=== PATIENT | male | born 1950 | race Two or more races ===

== ENCOUNTER 2018-10-24 16:33 | Emergency (ER) | payer MEDICARE ==
[~2018-10-24] VITALS: Ht 165.1 cm; Wt 75.3 kg
--- NOTE | 2018-10-24 16:45 | NUR ---
PATIENT CAME TO ER AMBULATORY. NO ACUTE DISTRESS. REPORTING THAT HI GT WAS PLACED AND IS ASKING IF WE CAN VERIFY PLACEMENT
--- NOTE | 2018-10-24 16:56 | NUR ---
DR KWONG AT BEDSIDE FOR GT REPLACEMENT
--- NOTE | 2018-10-24 17:00 | NUR ---
GT NOT REPLACED AT THIS TIME. DR KWONG WANTS TO VERIFY PLACEMENT OF CURRENT GT AT THIS TIME
[2018-10-24] MEDS ORDERED: DIATR MEGLU/DIATRIZOATE SODIUM 30 ML BOTTLE (GASTROGRAPHIN) ONE (17:10)
--- NOTE | 2018-10-24 17:18 | NUR ---
XRAY AT THE BEDSIDE. GT IS PATENT AND WAS FLUSHED WITH 30 ML WATER. GASTROGRAFIN GIVEN VIA GT. GT FLUSHED WITH 30 ML WATER AFTER GASTROGRAFIN.
--- NOTE | 2018-10-24 17:19 | NUR ---
XRAY IN PROGRESS
[2018-10-24 17:24] VITALS: BP 120/71
[2018-10-24] MEDS ORDERED: DIATR MEGLU/DIATRIZOATE SODIUM 30 ML BOTTLE (GASTROGRAPHIN) PO ONE (17:30)
[2018-10-24] MEDS ORDERED: DEXTROSE 50%-WATER 50 ML DISP.SYRIN ONE (19:29)
--- NOTE | 2018-10-24 19:40 | NUR ---
PATIENT NOTED TO BE ALTERED. NOT AWARE OF CURRENT LOCATION. FSBS TAKEN WITH RESULT OF 17. DR. KWONG MADE AWARE. PROTOCOL INITIATED. D50 IVP GIVEN. PATIENT TOLERATED WELL. RECHECKED BLOOD SUGAR AFTER ADMINISTRATION WITH RESULT OF 204. WILL RECHECK AFTER 1 HOUR
--- NOTE | 2018-10-24 20:49 | NUR ---
BG 88. MD AWARE. PT WANTS TO LEAVE AMA.
--- NOTE | 2018-10-24 20:52 | NUR ---
PT ASKED FOR BOTTLE OF GLUCERNA. 1 BOTTLE OF GLUCERNA GIVEN TO PT PRIOR TO LEAVING VIA [employer] and [employer].
--- NOTE | 2018-10-24 20:54 | NUR ---
Patient does not wish to proceed with medical care recommended by Dr. KWONG. Patient given information related to possible complications, up to and including , which could occur as a result of leaving the hospital at this time. Patient verbalizes understanding of risks involved due to leaving against medical advice. Patient has signed AMA form.
== END 2018-10-24 21:46 | disposition left against medical advice (07) ==
LOC: ER 16:35
DX: K94.20 Gastrostomy complication, unspecified (principal); E11.641 Type 2 diabetes mellitus with hypoglycemia with coma; Z85.858 Personal history of malignant neoplasm of other endocrine glands
CPT/HCPCS: 43762; 74018; 82962 ×3; 99284; Q9963 ×2